=== PATIENT | male | born 2000 | race Caucasian/White ===

== ENCOUNTER 2022-06-12 14:54 | Outpatient (CLI) | payer BC | END 2022-06-12 14:55 | disposition home or self-care (01) | LOC: LABBT 14:54 | PROVIDERS: ATTEND Student in an Organized Health Care Education/Training Program | DX: S02.2XXA Fracture of nasal bones, initial encounter for closed fracture (principal); Q21.9 Congenital malformation of cardiac septum, unspecified; S09.92XA Unspecified injury of nose, initial encounter; Z20.822 Contact with and (suspected) exposure to COVID-19 | CPT/HCPCS: 87811 ==

== ENCOUNTER 2022-06-13 10:03 | Day surgery (SDC) | payer BC ==
[2022-06-12 14:31] VITALS: BMI 28.2
[2022-06-13] MEDS ORDERED: Oxymetazoline HCl 0.05% (30 ML BOT) ONE ×2 (10:39→11:08)
[2022-06-13] MEDS ORDERED: Lidocaine 1% (PF) 30 ML VIAL ONE (10:39)
[2022-06-13] MEDS ORDERED: EPINEPHrine 1 MG/ML AMP ONE (10:39)
[2022-06-13] MEDS ORDERED: fentaNYL Citrate/PF 100 MCG/2 ML SYRINGE ONE (10:46)
[2022-06-13] MEDS ORDERED: Lidocaine 1% MPF 2 ML VIAL ONE (12:12)
[2022-06-13] MEDS ORDERED: PROPOFOL 200 MG/20 ML VIAL ONE (12:12)
[2022-06-13] MEDS ORDERED: Rocuronium Bromide 10 MG/ML (10ML VIAL) ONE (12:12)
[2022-06-13] MEDS ORDERED: Dexamethasone 20 MG/5 ML VIAL ONE (12:12)
[2022-06-13] MEDS ORDERED: Glycopyrrolate 0.2 MG/ML 5 ML SYRINGE ONE (12:12)
[2022-06-13] MEDS ORDERED: NEOSTIGMINE 3 MG/3 ML SYR 3 MG/3 ML SYRINGE ONE (12:12)
[2022-06-13] MEDS ORDERED: Ondansetron PF 4 MG/2 ML Vial ONE (12:12)
[2022-06-13] MEDS ORDERED: Midazolam HCl 2 mg/2 ml Vial ONE (12:13)
[2022-06-13] MEDS ORDERED: Bacitracin Zinc Ointment 30 gm TUBE ONE (12:33)
[2022-06-13] MEDS ORDERED: Fentanyl 100 MCG/2 ML VIAL ONE (13:25)
[2022-06-13] MEDS ORDERED: Ketorolac Tromethamine 30 MG/ML VIAL ONE (14:25)
[2022-06-13] MEDS ORDERED: Hydrocodone-Acetamin 15 ML UDCUP ONE (14:50)
== END 2022-06-13 15:15 | disposition home or self-care (01) ==
LOC: SDC 10:03
PROVIDERS: ATTEND Student in an Organized Health Care Education/Training Program
PROC: 0NSBXZZ Reposition Nasal Bone, External Approach (ICD-10-PCS; principal; 2022-06-13)
DX: S02.2XXA Fracture of nasal bones, initial encounter for closed fracture (principal); J34.2 Deviated nasal septum; J45.909 Unspecified asthma, uncomplicated; W50.0XXA Accidental hit or strike by another person, initial encounter; Y93.63 Activity, rugby
CPT/HCPCS: J0171; J1100; J1885; J2001; J2250; J2405; J2704; J3010